=== PATIENT | male | born 1960 | race Two or more races ===

== ENCOUNTER 2021-02-07 09:28 | Outpatient (CLI) | payer OTHER ==
[~2021-02-07 09:28] MED LIST: ENALAPRIL MALEA25 GM MC
== END 2021-02-07 09:44 | disposition home or self-care (01) ==
LOC: RAD 09:28
PROVIDERS: ATTEND Internal Medicine Cardiovascular Disease
DX: I10 Essential (primary) hypertension (principal)

== ENCOUNTER → 2023-07-08 09:45 | Outpatient (CLI) | payer OTHER | END | disposition home or self-care (01) | LOC: LAB 09:45 | PROVIDERS: ATTEND Surgery | DX: N40.1 Benign prostatic hyperplasia with lower urinary tract symptoms (principal) ==

== ENCOUNTER 2024-07-31 07:37 | Outpatient (CLI) | payer OTHER | END 2024-07-31 07:49 | disposition home or self-care (01) | LOC: TOM 07:37 | DX: R10.30 Lower abdominal pain, unspecified (principal) ==